=== PATIENT | male | born 1975 | race Caucasian/White ===

== ENCOUNTER 2022-12-28 11:35 | Day surgery (SDC) | payer OTHER ==
[~2022-12-28] VITALS: Ht 177.8 cm; Wt 86.1 kg
[~2022-12-28 11:35] MED LIST: GABA-282 PO; LISI5TAB11 PO; NS 1,000 ML IV ONE; TIZA10TA PO
[2022-12-28] MEDS ORDERED: LIDOCAINE 2% 100MG/5ML SDV (FOR ANES.) As Ordered ONE (14:20)
[2022-12-28] MEDS ORDERED: propofoL 200 MG/20 ML VIAL As Ordered ONE ×2 (14:20→14:24)
[2022-12-28 14:46] VITALS: BP 142/100
== END 2022-12-28 14:59 | disposition home or self-care (01) ==
LOC: M OPP 11:35
PROVIDERS: ATTEND Internal Medicine Gastroenterology
DX: Z12.11 Encounter for screening for malignant neoplasm of colon (principal); Z80.0 Family history of malignant neoplasm of digestive organs; K64.0 First degree hemorrhoids; I10 Essential (primary) hypertension; G43.909 Migraine, unspecified, not intractable, without status migrainosus; Z86.69 Personal history of other diseases of the nervous system and sense organs; Z87.442 Personal history of urinary calculi; Z87.891 Personal history of nicotine dependence; Z79.891 Long term (current) use of opiate analgesic; Z79.899 Other long term (current) drug therapy